=== PATIENT | male | born 1950 | race Caucasian/White ===

== ENCOUNTER 2023-05-06 06:27 | Day surgery (SDC) | payer MEDICARE, BC, SELFPAY ==
[2023-05-04 14:27] VITALS: BMI 22.2
--- NOTE | 2023-05-05 08:44 | HO.ANESPROP2 ---
HPI - Anesthesia Eval Consult details Narrative: 72yo M for Colonoscopy [facility] Past Medical History Medical History (Updated 05/04/23 @ 14:26 by Natalie Tran, RN) Hyperlipidemia BPH (benign prostatic hyperplasia) Hx of varicose veins Surgical History Surgical History (Updated 05/04/23 @ 14:26 by Natalie Tran, RN) Hx of colonoscopy Meds Home Medications Medication Instructions Recorded Confirmed Last Taken Type atorvastatin 20 mg tablet 20 mg PO BEDTIME 05/04/23 05/04/23 Unknown History finasteride 5 mg tablet 5 mg PO DAILY 05/04/23 05/04/23 Unknown History Exam Exam Date and Time: May 05, 2023 0844 Height,Weight and Vital Signs: Height 6 ft 3 in Weight 80.739 kg Assessment and Plan Assessment Anesthesia Assessment: Chart Reviewed
--- OUTSIDE RECORDS SUMMARY | 2023-05-06 06:30 | XMS_ITS | Continuity of Care Document ---
Author Name Unknown Organization [facility] [place] Address [address] [place] [address]- Care Team Providers Care Physical Therapist Assistant Name Role Phone Ina BRAMBILA, Joel Tripp Primary Care Physician [phone] [facility] 01[facility]21 - 02/07/21 [facility] Adult [address] [place] [address]- Allergies, Adverse Reactions, Alerts Substance Reaction Severity Status NKA Active Immunizations Given and Recorded Vaccine Date Status Refusal Reason SARS-CoV-2 (COVID-19) mRNA-1273 vaccine 1 09/27/20 Recorded SARS-CoV-2 (COVID-19) mRNA-1273 vaccine 08/30/20 R ecorded Zoster Vaccine Live 2 08/26/20 Recorded Zoster Vaccine Live 3 05/11/13 Given Influenza Virus Vaccine (oldterm) 4 04/10/20 Recor ded Influenza Virus Vaccine (oldterm) 04/04/20 Recorde d influenza virus vaccine, inactivated 05/01/19 Osman rded influenza virus vaccine, inactivated 5 05/22/18 Gi karen influenza virus vaccine, inactivated 6 04/05/18 Re corded influenza virus vaccine, inactivated 7 03/29/17 Gi karen influenza virus vaccine, inactivated 05/11/16 Give n influenza virus vaccine, inactivated 8 04/09/15 Re corded influenza virus vaccine, inactivated 9 05/11/13 Gi karen influenza virus vaccine, inactivated 10 04/10/12 G iven zoster vaccine, inactivated 09/05/18 Recorded zoster vaccine, inactivated 04/15/18 Recorded pneumococcal 13-valent vaccine 11 05/22/18 Given pneumococcal 13-valent vaccine 12 04/05/18 Recorde d pneumococcal 23-valent vaccine 05/11/16 Given Tet/diphth/pertussis, acel (oldterm) 06/18/11 Give n Fluvirin (oldterm) 13 06/18/11 Given Not Given Vaccine Date Status Refusal Reason Influenza Virus Vaccine (oldterm) 04/13/19 Not Giv en Parent Or Guardian Refuses 1[facility] Comment: [facility] 2Result Comment: [facility] 3Admin Note: given at [facility] 4Result Comment: PHARMACY 5Admin Note: [facility] 6Result Comment: [04/12/2018] [facility] 7Result Comment: [03/29/2017] [facility] [id number] 8Result Comment: [04/14/2015] [facility] 9Admin Note: given at [facility] 10Admin Note: [facility] 11Admin Note: [facility] 12Result Comment: [04/12/2018] [facility] 13Admin Note: WORK 11-11 Medications atorvastatin 20 mg oral tablet 1 tablet = 20 mg, By Mouth, Daily at bedtime, # 90 tablet, 3 Refills, Soft Stop, 01/14/21 10:27:00 EDT, [facility]/pharmacy #[id number], 187, cm, 09/19/20 9:39:00 EST, Height, 78.18, kg, 02/08/19 14:59:00 EDT, Dry Weight Start Date: 01/14/21 Status: Ordered finasteride 5 mg oral tablet 1 tablet = 5 mg, By Mouth, Daily, # 90 tablet, 3 Refills, Soft Stop, 01/14/21 10:27:00 EDT, [facility]/pharmacy #[id number], 187, cm, 09/19/20 9:39:00 EST, Height, 78.18, kg, 02/08/19 14:59:00 EDT, Dry Weight Start Date: 01/14/21 Status: Ordered sildenafil 100 mg oral tablet 1 tablet = 100 mg, By Mouth, Daily, 1 hour before sexual activity, # 10 tablet, 0 Refills, Maintenance, 01/14/21 17:19:00 EDT, [facility]t, [id number], Partial fill upon patient request if the prescription is for a schedule II opioid drug., 187, cm... Start Date: 01/14/21 Status: Ordered Problem List Condition Effective Dates Status Health Status Inform ant BPH - Benign prostatic hypertrophy(Confirmed) Active Mucous cyst of finger - left 3rd(Confirmed) Active Hyperlipidemia(Confirmed) Active Varicose veins(Confirmed) Active Social History Social History Type Response Smoking Status Never smoker entered on: 03/26/16 Sex Male
--- OUTSIDE RECORDS SUMMARY | 2023-05-06 06:30 | XMS_ITS | Continuity of Care Document ---
Author Name Unknown Organization [facility] [place] Address [address] [place] [address]- Care Team Providers Care Warper Tender Name Role Phone Patrick ALDANA, Irene Chaves Primary Care Physician [facility] 04[facility]/22 - 05/05/22 [facility] Adult [address] [place] [address]- Allergies, Adverse Reactions, Alerts No Known Allergies Immunizations Given and Recorded Vaccine Date Status Refusal Reason influenza virus vaccine, inactivated 03/31/21 Osman rded influenza virus vaccine, inactivated 05/01/19 Osman rded influenza virus vaccine, inactivated 1 05/22/18 Gi karen influenza virus vaccine, inactivated 2 04/05/18 Re corded influenza virus vaccine, inactivated 3 03/29/17 Gi karen influenza virus vaccine, inactivated 05/11/16 Give n influenza virus vaccine, inactivated 4 04/09/15 Re corded influenza virus vaccine, inactivated 04/24/14 Osman rded influenza virus vaccine, inactivated 5 05/11/13 Gi karen influenza virus vaccine, inactivated 05/09/13 Osman rded influenza virus vaccine, inactivated 6 04/10/12 Gi karen SARS-CoV-2 (COVID-19) mRNA-1273 vaccine 7 09/27/20 Recorded SARS-CoV-2 (COVID-19) mRNA-1273 vaccine 08/30/20 R ecorded Zoster Vaccine Live 8 08/26/20 Recorded Zoster Vaccine Live 9 05/11/13 Given Zoster Vaccine Live 05/09/13 Recorded Influenza Virus Vaccine (oldterm) 10 04/10/20 Osman rded Influenza Virus Vaccine (oldterm) 04/04/20 Recorde d zoster vaccine, inactivated 09/05/18 Recorded zoster vaccine, inactivated 04/15/18 Recorded pneumococcal 13-valent vaccine 11 05/22/18 Given pneumococcal 13-valent vaccine 12 04/05/18 Recorde d pneumococcal 23-valent vaccine 05/11/16 Given Tet/diphth/pertussis, acel (oldterm) 06/18/11 Give n Fluvirin (oldterm) 13 06/18/11 Given Not Given Vaccine Date Status Refusal Reason Influenza Virus Vaccine (oldterm) 04/13/19 Not Giv en Parent Or Guardian Refuses 1[facility] 2Result Comment: [04/12/2018[facility] 3Result Comment: [03/29/2017] [facility] [id number] 4Result Comment: [04/14/2015] [facility] 5Admin Note: given at [facility] 6Admin Note: [facility] 7Result Comment: [facility] 8Result Comment: [facility] 9Admin Note: given at [facility] 10Result Comment: PHARMACY 11Admin Note: [facility] 12Result Comment: [04/12/2018] [facility] 13Admin Note: WORK 11-11 Medications atorvastatin 20 mg oral tablet 1 tablet, By Mouth, Daily at bedtime, PLEASE CALL OFFICE TO SCHEDULE AN APPT., # 90 tablet, 3 Refills, Maintenance, 04/13/22 11:07:00 EDT, [facility]/pharmacy #0373, 185.5, cm, 05/01/21 8:26:00 EDT, Height Start Date: 04/13/22 Status: Ordered finasteride 5 mg oral tablet 1 tablet, By Mouth, Daily, PLEASE CALL OFFICE TO SCHEDULE AN APPT., # 90 tablet, 0 Refills, Maintenance, 04/08/22 15:09:00 EDT, [facility] STORE 61472, 185.5, cm, 05/01/21 8:26:00 EDT, Height Start Date: 04/08/22 Status: Ordered sildenafil 100 mg oral tablet 1 tablet = 100 mg, By Mouth, Daily, 1 hour before sexual activity REFAXED TO [facility], # 10 tablet, 0Refills, Maintenance, 02/27/21 12:38:00 EDT, Tablet, [facility] # [facility], Partial fill upon patient request if the prescription is for a schedule II... Start Date: 02/27/21 Status: Ordered Problem List Condition Confirmation Course Effective Dates Status H ealth Status Informant BPH - Benign prostatic hypertrophy Confirmed Active Mucous cyst of finger - left 3rd Confirmed Active Hyperlipidemia Confirmed Active Varicose veins Confirmed Active Social History Social History Type Response Smoking Status Never smoker entered on: 03/26/16 Sex Male Patient Care team information Personnel Name: Irene Nguyen NP Address: Address: [address] [place] [id number]
--- OUTSIDE RECORDS SUMMARY | 2023-05-06 06:30 | XMS_ITS | Continuity of Care Document ---
Author Name Unknown Organization [facility] [place] Address [address] [place] [address]- Care Team Providers Care Calciminer Name Role Phone Joel Buckley MD Primary Care Physician [phone] [facility]): 04/25/20 - 05/02/20 [facility] Adult [address] [place] [address]- [facility] Encounter Diagnosis BPH - Benign prostatic hypertrophy(Discharge Diagnosis) - 04/25/20 General medical exam(Discharge Diagnosis) - 04/25/20 Hyperlipidemia(Discharge Diagnosis) - 04/25/20 Attending Physician: Joel Buckley MD Allergies, Adverse Reactions, Alerts Substance Reaction Severity Status NKA Active Immunizations Given and Recorded Vaccine Date Status Refusal Reason Influenza Virus Vaccine (oldterm) 1 04/10/20 Recor ded influenza virus vaccine, inactivated 05/01/19 Osman rded influenza virus vaccine, inactivated 2 05/22/18 Gi karen influenza virus vaccine, inactivated 3 04/05/18 Re corded influenza virus vaccine, inactivated 4 03/29/17 Gi karen influenza virus vaccine, inactivated 05/11/16 Give n influenza virus vaccine, inactivated 5 04/09/15 Re corded influenza virus vaccine, inactivated 6 05/11/13 Gi karen influenza virus vaccine, inactivated 7 04/10/12 Gi karen zoster vaccine, inactivated 09/05/18 Recorded zoster vaccine, inactivated 04/15/18 Recorded pneumococcal 13-valent vaccine 8 05/22/18 Given pneumococcal 13-valent vaccine 9 04/05/18 Recorded pneumococcal 23-valent vaccine 05/11/16 Given Zoster Vaccine Live 10 05/11/13 Given Tet/diphth/pertussis, acel (oldterm) 06/18/11 Give n Fluvirin (oldterm) 11 06/18/11 Given Not Given Vaccine Date Status Refusal Reason Influenza Virus Vaccine (oldterm) 04/13/19 Not Giv en Parent Or Guardian Refuses 1Result Comment: PHARMACY 2Admin Note: [facility] 3Result Comment: [04/12/2018] [facility] 4Result Comment: [03/29/2017] [facility] [id number] 5Result Comment: [04/14/2015] [facility] 6Admin Note: given at [facility] 7Admin Note: [facility] 8Admin Note: [facility] 9Result Comment: [04/12/2018] [facility] 10Admin Note: given at [facility] 11Admin Note: WORK 11-11 Medications atorvastatin 20 mg oral tablet 1 tablet = 20 mg, By Mouth, Daily at bedtime, # 90 tablet, 3 Refills, Soft Stop, 04/25/20 9:04:00 EDT, [facility]/pharmacy #0373, 187, cm, 04/25/20 8:37:00 EDT, Height, 78.18, kg, 02/08/19 14:59:00 EDT, DryWeight Start Date: 04/25/20 Status: Ordered finasteride 5 mg oral tablet 1 tablet = 5 mg, By Mouth, Daily, # 90 tablet, 3 Refills, Soft Stop, 04/25/20 9:04:00 EDT, [facility]/pharmacy #0373, 187, cm, 04/25/20 8:37:00 EDT, Height, 78.18, kg, 02/08/19 14:59:00 EDT, Dry Weight Start Date: 04/25/20 Status: Ordered Problem List Condition Effective Dates Status Health Status Inform ant BPH - Benign prostatic hypertrophy(Confirmed) Active Mucous cyst of finger - left 3rd(Confirmed) Active Hyperlipidemia(Confirmed) Active Varicose veins(Confirmed) Active Diagnosis Diagnosis Type Effective Dates Health Status Clinical Service Informant BPH - Benign prostatic hypertrophy Discharge Diagnosis 04/25/20 General medical exam Discharge Diagnosis 04/25/20 Hyperlipidemia Discharge Diagnosis 04/25/20 Vital Signs Most recent to oldest [Reference Range]: 1 Height 187.00 cm (04/25/20 8:37 AM) Weight 82.2 kg (04/25/20 8:37 AM) Oxygen Saturation [94-100 %] 99 % (04/25/20 8:37 AM) Pulse Rate [55-90 bpm] 71 bpm (04/25/20 8:37 AM) Body Mass Index [18.5-24.99] 23.51 (04/25/20 8:37 AM) Blood Pressure [90-138/55-84 mm Hg] 110/ 80mm Hg (04/25/20 8:37 AM) Temperature [96.8-100.4 DegF] 97.8 DegF (04/25/20 8:37 AM) Blood pressure sites Arm, left (04/25/20 8:37 AM) Social History Social History Type Response Smoking Status Never smoker entered on: 03/26/16 Sex
--- OUTSIDE RECORDS SUMMARY | 2023-05-06 06:30 | XMS_ITS | Continuity of Care Document ---
Author Name Unknown Organization [facility] [place] Address [address] [place] [address]- Care Team Providers Care Real Estate Officer Name Role Phone Patrick ALDANA, Irene Chaves Primary Care Physician [facility](s): 03/28/23 - 04/27/23 [facility] Adult [address] [place] [address]- Allergies, Adverse Reactions, Alerts No Known Allergies Immunizations Given and Recorded Vaccine Date Status Refusal Reason pneumococcal 20-valent conjugate vaccine 05/14/22 Given tetanus-diphtheria toxoids (Td) 05/14/22 Given influenza virus vaccine, inactivated 04/12/22 Osman rded influenza virus vaccine, inactivated 03/31/21 Osman rded [...] virus vaccine, inactivated 6 04/10/12 Gi karen [id number] bivalent booster vax 04/12/22 Recorded SARS-CoV-2 (COVID-19) mRNA-1273 vaccine 10/27/21 R ecorded SARS-CoV-2 (COVID-19) mRNA-1273 vaccine 05/04/21 R ecorded SARS-CoV-2 (COVID-19) mRNA-1273 vaccine 7 09/27/20 Recorded [...] Give n Fluvirin (oldterm) 13 06/18/11 Given 1Admin Note: [facility] 2Result Comment: [04/12/2018] [facility] 3Result Comment: [03/29/2017] [facility] [id number] 4Result Comment: [04/14/2015] [facility] 5Admin Note: given at [facility] 6Admin Note: [facility] 7[facility] Comment: [facility] 8Result Comment: [facility] 9Admin Note: given at [facility] 10Result Comment: [facility] 11Admin Note: [facility] 12Result Comment: [04/12/2018] [facility] 13Admin Note: WORK 11-11 Medications atorvastatin 20 mg oral tablet 1 tablet, By Mouth, Daily at bedtime, # 90 tablet, 0 Refills, Maintenance, 03/31/23 7:58:00 EDT, [facility] 420[facility], 185.5, cm, 05/14/22 7:12:00 EDT, Height Start Date: 03/31/23 Status: Ordered finasteride 5 mg oral tablet 1 tablet, By Mouth, Daily, PLEASE CALL OFFICE TO SCHEDULE AN APPT., # 90 tablet, 3 Refills, Maintenance, 06/17/22 12:32:00 EST, [facility] 78067, 185.5, cm, 05/14/22 7:12:00 EDT, Height Start Date: 06/17/22 Status: Ordered Problem List Condition Confirmation Course Effective Dates Status H ealth Status Informant BPH - Benign prostatic hypertrophy Confirmed Active Mucous cyst of finger - left 3rd Confirmed Active Hyperlipidemia Confirmed Active Varicose veins Confirmed Active Social History Social History Type Response Smoking Status Never smoker entered on: 03/26/16 Sex Male Patient Care team information Care Team Personnel Name: Irene Nguyen NP Position: S PCO Associate Professional Member Role: PCP Address: Address: [address] [place] [address]- Care Team Related Persons Name: SYLVIA FRAGOSO Address: [address] [place] [address]
--- OUTSIDE RECORDS SUMMARY | 2023-05-06 06:30 | XMS_ITS | Continuity of Care Document ---
Author Name Unknown Organization [facility] [place] Address [address] [place] [address]- Care Team Providers Care Dolly Driver Name Role Phone Ina BRAMBILA, Joel Tripp Primary Care Physician [facility](s): 03/02/21 - 04/01/21 [facility] Adult [address] [place] [address]- Allergies, Adverse Reactions, Alerts Substance Reaction Severity [...] Guardian Refuses 1[facility] Comment: [facility] 2Result Comment: [facility] 3Admin Note: given at [facility] 4Result Comment: PHARMACY 5Admin Note: [facility] 6Result Comment: [04/12/2018] [facility] 7Result Comment: [03/29/2017] [facility] [id number] 8Result Comment: [04/14/2015] [facility] 9Admin Note: given at [facility] 10Admin Note: [facility] 11Admin Note: [facility] 12Result Comment: [04/12/2018] [facility] 13Admin Note: WORK 11-11 Medications atorvastatin 20 mg oral tablet 1 tablet = 20 mg, By Mouth, Daily at bedtime, # 90 tablet, 3 Refills, Soft Stop, 01/14/21 10:27:00 EDT, [facility]/pharmacy #0373, 187, cm, 09/19/20 9:39:00 EST, Height, 78.18, kg, 02/08/19 14:59:00 EDT, Dry Weight Start Date: 01/14/21 Status: Ordered finasteride 5 mg oral tablet 1 tablet = 5 mg, By Mouth, Daily, # 90 tablet, 3 Refills, Soft Stop, 01/14/21 10:27:00 EDT, [facility]/pharmacy #0373, 187, cm, 09/19/20 9:39:00 EST, Height, 78.18, kg, 02/08/19 14:59:00 EDT, Dry Weight Start Date: 01/14/21 Status: Ordered sildenafil 100 mg oral tablet 1 tablet = 100 mg, By Mouth, Daily, 1 hour before sexual activity REFAXED TO [facility], # 10 tablet, 0Refills, Maintenance, 02/27/21 12:38:00 EDT, Tablet, [facility] # 302, Partial fill upon patient request if the prescription is for a schedule II... Start Date: 02/27/21 Status: Ordered Problem List Condition Effective Dates Status Health Status Inform ant BPH - Benign prostatic hypertrophy(Confirmed) Active Mucous cyst of finger - left 3rd(Confirmed) Active Hyperlipidemia(Confirmed) Active Varicose veins(Confirmed) Active Social History Social History Type Response Smoking Status Never smoker entered on: 03/26/16 Sex Male
--- OUTSIDE RECORDS SUMMARY | 2023-05-06 06:30 | XMS_ITS | Continuity of Care Document ---
Author Name Unknown Organization [facility] [place] Address [address] [place] [address]- Care Team Providers Care Rehabilitation Therapy Aide Name Role Phone Joel Buckley MD Primary Care Physician [facility](s): 05/01/21 - 05/08/21 [facility] Adult [address] [place] [address]- Encounter Diagnosis BPH - Benign prostatic hypertrophy(Discharge Diagnosis) - 05/01/21 Erectile dysfunction(Discharge Diagnosis) - 05/01/21 General medical exam(Discharge Diagnosis) - 05/01/21 Hyperlipidemia(Discharge Diagnosis) - 05/01/21 Attending Physician: Joel Buckley MD Allergies, Adverse [...] en Parent Or Guardian Refuses 1Admin Note: [facility] 2Result Comment: [04/12/2018] [facility] 3Result Comment: [03/29/2017] [facility] [id number] 4Result Comment: [04/14/2015] [facility] 5Admin Note: given at [facility] 6Admin Note: [facility] 7Result Comment: [facility] 8Result Comment: [facility] 9Admin Note: given at [facility] 10Result Comment: [facility]Y 11Admin Note: [facility] 12Result Comment: [04/12/2018] [facility] 13Admin Note: WORK 11-11 Medications atorvastatin 20 mg oral tablet 1 tablet = 20 mg, By Mouth, Daily at bedtime, # 90 tablet, 3 Refills, Soft Stop, 01/14/21 10:27:00 EDT, [facility]/pharmacy #0373, 187, cm, 09/19/20 9:39:00 EST, Height, 78.18, kg, 02/08/19 14:59:00 EDT, Dry Weight Start Date: 01/14/21 Status: Ordered finasteride 5 mg oral tablet 1 tablet = 5 mg, By Mouth, Daily, # 90 tablet, 3 Refills, Soft Stop, 01/14/21 10:27:00 EDT, [facility]/pharmacy #0373, 187, cm, 09/19/20 9:39:00 EST, Height, 78.18, kg, 02/08/19 14:59:00 EDT, Dry Weight Start Date: 01/14/21 Status: Ordered sildenafil 100 mg oral tablet 1 tablet = 100 mg, By Mouth, Daily, 1 hour before sexual activity REFAXED TO [facility], # 10 tablet, 0Refills, Maintenance, 02/27/21 12:38:00 EDT, Tablet, [facility], Partial fill upon patient [...] BPH - Benign prostatic hypertrophy Discharge Diagnosis 05/01/21 Hyperlipidemia Discharge Diagnosis 05/01/21 Erectile dysfunction Discharge Diagnosis 05/01/21 General medical exam Discharge Diagnosis 05/01/21 Vital Signs Most recent to oldest [Reference Range]: 1 Height 185.5 cm (05/01/21 8:26 AM) Weight 80.6 kg (05/01/21 8:26 AM) Oxygen Saturation [94-100 %] 99 % (05/01/21 8:26 AM) Pulse Rate [55-90 bpm] 64 bpm (05/01/21 8:26 AM) Body Mass Index [18.5-24.99] 23.42 (05/01/21 8:26 AM) Blood Pressure [90-138/55-84 mm Hg] 118/ 73mm Hg (05/01/21 8:26 AM) Temperature [96.8-100.4 DegF] 98.1 DegF (05/01/21 8:26 AM) Mode of Delivery (Oxygen) Room air (05/01/21 8:26 AM) Blood pressure sites Arm, left (05/01/21 8:26 AM) Temperature Route Oral (05/01/21 8:26 AM) Weight Obtained Via Standing scale (05/01/21 8:26 AM) Social History Social History Type Response Smoking Status Never smoker entered on: 03/26/16 Sex Male
--- OUTSIDE RECORDS SUMMARY | 2023-05-06 06:30 | XMS_ITS | Continuity of Care Document ---
Author Name Unknown Organization [facility] [place] Address [address] [place] [address]- Care Team Providers Care Business Education Teacher Name Role Phone Ina BRAMBILA, Joel Tripp Primary Care Physician [facility](s): 04/28/21 - 05/28/21 [facility] Adult [address] [place] [address]- Allergies, Adverse Reactions, Alerts Substance Reaction Severity [...] en Parent Or Guardian Refuses 1Admin Note: [facility] 2Result Comment: [04/12/2018] [facility] 3Result Comment: [03/29/2017] [facility] [id number] 4Result Comment: [04/14/2015] [facility] 5Admin Note: given at [facility] 6Admin Note: [facility] 7Result Comment: [facility] 8Result Comment: [facility] 9Admin Note: given at [facility] 10Result Comment: PHARMACY 11Admin Note: [facility] 12Result Comment: [04/12/2018] [facility] 13Admin Note: WORK 11-11 Medications atorvastatin 20 mg oral tablet 1 tablet = 20 mg, By Mouth, Daily at bedtime, # 90 tablet, 3 Refills, Soft Stop, 01/14/21 10:27:00 EDT, [facility]/pharmacy #0373, 187, cm, 09/19/20 9:39:00 EST, Height, 78.18, kg, 02/08/19 14:59:00 EDT, Dry Weight Start Date: 01/14/21 Status: Ordered finasteride 5 mg oral tablet 1 tablet = 5 mg, By Mouth, Daily, # 90 tablet, 3 Refills, Soft Stop, 01/14/21 10:27:00 EDT, [facility]/pharmacy #0373, 187, cm, 09/19/20 9:39:00 EST, Height, 78.18, kg, 02/08/19 14:59:00 EDT, Dry Weight Start Date: 01/14/21 Status: Ordered sildenafil 100 mg oral tablet 1 tablet = 100 mg, By Mouth, Daily, 1 hour before sexual activity REFAXED TO [facility], # 10 tablet, 0Refills, Maintenance, 02/27/21 12:38:00 EDT, Tablet, [facility] # 302, Partial fill upon patient [...]
--- OUTSIDE RECORDS SUMMARY | 2023-05-06 06:30 | XMS_ITS | Continuity of Care Document ---
Author Name Unknown Organization [facility] [place] Address [address] [place] [address]- Care Team Providers Care Party Plan Demonstrator Name Role Phone Ina BRAMBILA, Joel Tripp Primary Care Physician [phone] [facility](s): 02/26/21 - 03/28/21 [facility] Adult [address] [place] [address]- Allergies, Adverse Reactions, Alerts Substance Reaction Severity [...] Guardian Refuses [facility] 2Result Comment: [facility] 3Admin Note: given at [facility] 4Result Comment: PHARMACY 5Admin Note: [facility] 6[facility] Comment: [04/12/2018] [facility] 7Result Comment: [03/29/2017] [facility] [id number] 8Result Comment: [04/14/2015] [facility] 9Admin Note: given at [facility] 10Admin Note: [facility] 11Admin Note: [facility] 12Result Comment: [04/12/2018] [facility] 13Admin Note: WORK 11-11 Medications atorvastatin 20 mg oral tablet 1 tablet = 20 mg, By Mouth, Daily at bedtime, # 90 tablet, 3 Refills, Soft Stop, 01/14/21 10:27:00 EDT, [facility]/pharmacy #0373, 187, cm, 09/19/20 9:39:00 EST, Height, 78.18, kg, 02/08/19 14:59:00 EDT, Dry Weight Start Date: 01/14/21 Status: Ordered finasteride 5 mg oral tablet 1 tablet = 5 mg, By Mouth, Daily, # 90 tablet, 3 Refills, Soft Stop, 01/14/21 10:27:00 EDT, [facility]/pharmacy #0373, 187, cm, 09/19/20 9:39:00 EST, [...]
--- OUTSIDE RECORDS SUMMARY | 2023-05-06 06:30 | XMS_ITS | Continuity of Care Document ---
Author Name Unknown Organization [facility] [place] lt Address [address] [place] [address]- Care Team Providers Care Wildlife Ecology Professor Name Role Phone Ina BRAMBILA, Joel Tripp Primary Care Physician [phone] [facility]): 01/09/21 - 02/08/21 [facility] Adult [address] [place] [address]- Allergies, Adverse Reactions, Alerts Substance Reaction Severity [...] Guardian Refuses 1Result Comment: [facility] 2Result Comment: [facility] 3Admin Note: given at [facility] 4Result Comment: PHARMACY 5Admin Note: [facility] 6Result Comment: [04/12/2018] [facility] 7Result Comment: [03/29/2017] [facility] [id number] 8Result Comment: [04/14/2015] [facility] 9Admin Note: given at [facility] 10Admin Note: [facility] 11Admin Note: [facility] 12Result Comment: [04/12/2018] [facility] 13Admin Note: WORK 11-11 Medications atorvastatin 20 mg oral tablet 1 tablet = 20 mg, By Mouth, Daily at bedtime, # 90 tablet, 3 Refills, Soft Stop, 01/14/21 10:27:00 EDT, [facility]/pharmacy #[id number], 187, cm, 09/19/20 9:39:00 EST, Height, 78.18, kg, 02/08/19 14:59:00 EDT, Dry Weight Start Date: 01/14/21 Status: Ordered finasteride 5 mg oral tablet 1 tablet = 5 mg, By Mouth, Daily, # 90 tablet, 3 Refills, Soft Stop, 01/14/21 10:27:00 EDT, [facility]/pharmacy #0373, 187, cm, 09/19/20 9:39:00 [...]
--- OUTSIDE RECORDS SUMMARY | 2023-05-06 06:30 | XMS_ITS | Continuity of Care Document ---
Author Name Unknown Organization [facility] [place] Address [address] [place] [address]- Care Team Providers Care Jointer Submarine Cable Name Role Phone Ina BRAMBILA, Joel Tripp Primary Care Physician Encounter [facility] Date(s): 01/26/21 - 02/25/21 [facility] Adult [address] [place] [address]- Allergies, Adverse Reactions, Alerts Substance Reaction Severity [...] Guardian Refuses 1Result Comment: [facility] 2Result Comment: [facility] 3Admin Note: given at [facility] 4Result Comment: PHARMACY 5Admin Note: [facility] 6Result Comment: [04/12/2018] [facility] 7Result Comment: [03/29/2017] [facility] [id number] 8Result Comment: [04/14/2015] [facility] 9Admin Note: given at [facility] 10Admin Note: [facility] 11Admin Note: [place] 12Result Comment: [04/12/2018] [facility] 13Admin Note: WORK 11-11 Medications atorvastatin 20 mg oral tablet 1 tablet = 20 mg, By Mouth, Daily at bedtime, # 90 tablet, 3 Refills, Soft Stop, 01/14/21 10:27:00 EDT, [facility]/pharmacy #0373, 187, cm, 09/19/20 9:39:00 EST, Height, 78.18, kg, 02/08/19 14:59:00 EDT, Dry Weight Start Date: 01/14/21 Status: Ordered finasteride 5 mg oral tablet 1 tablet = 5 mg, By Mouth, Daily, # 90 tablet, 3 Refills, Soft Stop, 01/14/21 10:27:00 EDT, [facility]/pharmacy #0373, 187, cm, 09/19/20 9:39:00 [...]
--- OUTSIDE RECORDS SUMMARY | 2023-05-06 06:30 | XMS_ITS | Continuity of Care Document ---
Author Name Unknown Organization [facility] [place] Address [address] [place] [address]- Care Team Providers Care Jewelry Sales Associate Name Role Phone Patrick ALDANA, Irene Chaves Primary Care Physician Encounter [facility] Date(s): 04/13/22 - 05/13/22 [facility] Adult [address] [place] [address]- Allergies, Adverse Reactions, Alerts No Known Allergies [...] 2Result Comment: [04/12/2018] [facility] 3Result Comment: [03/29/2017] [facility] [id number] 4Result Comment: [04/14/2015] [facility] 5Admin Note: given at [facility] 6Admin Note: [facility] 7Result Comment: [facility] 8Result Comment: [facility] 9Admin Note: given at [facility] 10Result Comment: PHARMACY 11Admin Note: [facility] 12Result Comment: [04/12/2018] [facility] 13Admin Note: WORK 11-11 Medications atorvastatin 20 mg oral tablet 1 tablet, By Mouth, Daily at bedtime, PLEASE CALL OFFICE TO SCHEDULE AN APPT., # 90 tablet, 3 Refills, Maintenance, 04/13/22 11:07:00 EDT, [facility]/pharmacy #0373, 185.5, cm, 05/01/21 8:26:00 EDT, Height Start Date: 04/13/22 Status: Ordered finasteride 5 mg oral tablet 1 tablet, By Mouth, Daily, PLEASE CALL OFFICE TO SCHEDULE AN APPT., # 90 tablet, 0 Refills, Maintenance, 04/08/22 15:09:00 EDT, [facility] [id number], 185.5, cm, 05/01/21 8:26:00 EDT, Height Start Date: 04/08/22 Status: Ordered sildenafil 100 mg oral tablet 1 tablet = 100 mg, By Mouth, Daily, 1 hour before sexual activity REFAXED TO [employer], # 10 tablet, 0Refills, Maintenance, 02/27/21 12:38:00 EDT, Tablet, [facility], Partial fill upon patient [...] Personnel Name: Irene Nguyen NP Address: Address: [address] [place] [id number]
--- OUTSIDE RECORDS SUMMARY | 2023-05-06 06:30 | XMS_ITS | Continuity of Care Document ---
Author Name Unknown Organization [facility] [place] Address [address] [place] [address]- Care Team Providers Care Wall Washer Name Role Phone Ina BRAMBILA, Joel Tripp Primary Care Physician Encounter [facility] Date(s): 03/02/21 - 04/01/21 [facility] Adult [address] [place] [address]- Allergies, Adverse Reactions, Alerts Substance Reaction Severity [...] Guardian Refuses 1Result Comment: [facility] 2Result Comment: [facility] 3Admin Note: given at [facility] 4Result Comment: PHARMACY 5Admin Note: [facility] 6Result Comment: [04/12/2018] [facility] 7Result Comment: [03/29/2017] [facility] [id number] 8Result Comment: [04/14/2015] [facility] 9Admin Note: given at [facility] 10Admin Note: [facility] 11Admin Note: [place] 12Result Comment: [04/12/2018] [facility] 13Admin Note: WORK 11-11 Medications atorvastatin 20 mg oral tablet 1 tablet = 20 mg, By Mouth, Daily at bedtime, # 90 tablet, 3 Refills, Soft Stop, 01/14/21 10:27:00 EDT, [facility]/pharmacy #[id number], 187, cm, 09/19/20 9:39:00 EST, Height, 78.18, kg, 02/08/19 14:59:00 EDT, Dry Weight Start Date: 01/14/21 Status: Ordered finasteride 5 mg oral tablet 1 tablet = 5 mg, By Mouth, Daily, # 90 tablet, 3 Refills, Soft Stop, 01/14/21 10:27:00 EDT, [facility]/pharmacy #0373, 187, cm, 09/19/20 9:39:00 EST, [...]
--- OUTSIDE RECORDS SUMMARY | 2023-05-06 06:30 | XMS_ITS | Continuity of Care Document ---
Author Name Unknown Organization [facility] [place] Address [address] [place] [address]- Care Team Providers Care Sand Cutting Machine Operator Name Role Phone Ina BRAMBILA, Joel Tripp Primary Care Physician Encounter [facility] Date(s): 01/09/21 - 02/08/21 [facility] Adult [address] [place] [address]- Allergies, Adverse Reactions, Alerts Substance Reaction Severity [...] Guardian Refuses 1Result Comment: [facility] 2Result Comment: [facility] 3Admin Note: given at [facility] 4Result Comment: PHARMACY 5Admin Note: [facility] 6Result Comment: [04/12/2018] [facility] 7Result Comment: [03/29/2017] [facility] [id number] 8Result Comment: [04/14/2015] [facility] 9Admin Note: given at [facility] 10Admin Note: [facility] 11Admin Note: [place] 12Result Comment: [04/12/2018] [facility] 13Admin Note: WORK 11-11 Medications atorvastatin 20 mg oral tablet 1 tablet = 20 mg, By Mouth, Daily at bedtime, # 90 tablet, 3 Refills, Soft Stop, 01/14/21 10:27:00 EDT, [facility]/pharmacy #0373, 187, cm, 09/19/20 9:39:00 EST, Height, 78.18, kg, 02/08/19 14:59:00 EDT, Dry Weight Start Date: 01/14/21 Status: Ordered finasteride 5 mg oral tablet 1 tablet = 5 mg, By Mouth, Daily, # 90 tablet, 3 Refills, Soft Stop, 01/14/21 10:27:00 EDT, [facility]/pharmacy #0373, 187, cm, 09/19/20 9:39:00 EST, [...]
--- OUTSIDE RECORDS SUMMARY | 2023-05-06 06:30 | XMS_ITS | Continuity of Care Document ---
Author Name Unknown Organization [facility] [place] Address [address] [place] [address]- Care Team Providers Care Tobacco Wrapping Machine Tender Name Role Phone Ina BRAMBILA, Joel Tripp Primary Care Physician [phone] [facility]counter [facility] Date(s): 01/13/21 - 02/12/21 [facility] Adult [address] [place] [address]- Allergies, Adverse Reactions, Alerts Substance Reaction Severity [...] Guardian Refuses 1Result Comment: [facility] 2Result Comment: [facility] 3Admin Note: given at [facility] 4Result Comment: PHARMACY 5Admin Note: [facility] 6Result Comment: [04/12/2018] [facility] 7Result Comment: [03/29/2017] [facility] [id number] 8Result Comment: [04/14/2015] [facility] 9Admin Note: given at [facility] 10Admin Note: [facility] 11Admin Note: [place] 12Result Comment: [04/12/2018] [facility] 13Admin Note: WORK 11-11 Medications atorvastatin 20 mg oral tablet 1 tablet = 20 mg, By Mouth, Daily at bedtime, # 90 tablet, 3 Refills, Soft Stop, 01/14/21 10:27:00 EDT, [facility]/pharmacy #0373, 187, cm, 09/19/20 9:39:00 EST, Height, 78.18, kg, 02/08/19 14:59:00 EDT, Dry Weight Start Date: 01/14/21 Status: Ordered finasteride 5 mg oral tablet 1 tablet = 5 mg, By Mouth, Daily, # 90 tablet, 3 Refills, Soft Stop, 01/14/21 10:27:00 EDT, [facility]/pharmacy #0373, 187, cm, 09/19/20 9:39:00 EST, [...]
--- OUTSIDE RECORDS SUMMARY | 2023-05-06 06:30 | XMS_ITS | Continuity of Care Document ---
Author Name Unknown Organization [facility] [place] Address [address] [place] [address]- Care Team Providers Care Printed Circuit Board Reworker Name Role Phone Ina BRAMBILA, Joel Tripp Primary Care Physician [phone] [facility]counter [facility] Date(s): 09/19/20 - 09/26/20 [facility] Adult [address] [place] [address]- Attending Physician: Adalid ALDANA, Maria Fernanda Hernandez Allergies, Adverse Reactions, Alerts Substance Reaction Severity Status NKA Active Immunizations Given and Recorded Vaccine Date Status Refusal Reason SARS-CoV-2 (COVID-19) mRNA-3976 vaccine 08/30/20 R ecorded Zoster Vaccine Live 1 08/26/20 Recorded Zoster Vaccine Live 2 05/11/13 Given Influenza Virus Vaccine (oldterm) 3 04/10/20 Recor ded Influenza Virus Vaccine (oldterm) 04/04/20 Recorde d influenza virus vaccine, inactivated 05/01/19 Osman rded influenza virus vaccine, inactivated 4 05/22/18 Gi karen influenza virus vaccine, inactivated 5 04/05/18 Re corded influenza virus vaccine, inactivated 6 03/29/17 Gi karen influenza virus vaccine, inactivated 05/11/16 Give n influenza virus vaccine, inactivated 7 04/09/15 Re corded influenza virus vaccine, inactivated 8 05/11/13 Gi karen influenza virus vaccine, inactivated 9 04/10/12 Gi karen zoster vaccine, inactivated 09/05/18 Recorded zoster vaccine, inactivated 04/15/18 Recorded pneumococcal 13-valent vaccine 10 05/22/18 Given pneumococcal 13-valent vaccine 11 04/05/18 Recorde d pneumococcal 23-valent vaccine 05/11/16 Given Tet/diphth/pertussis, acel (oldterm) 06/18/11 Give n Fluvirin (oldterm) 12 06/18/11 Given Not Given Vaccine Date Status Refusal Reason Influenza Virus Vaccine (oldterm) 04/13/19 Not Giv en Parent Or Guardian Refuses 1[facility] Comment[facility] 2Admin Note: [facility] at [facility] 3Result Comment: [facility] 4Admin Note: [facility] 5Result Comment: [04/12/2018] [facility] 6Result Comment: [03/29/2017] [facility] [id number] 7Result Comment: [04/14/2015] [facility] 8Admin Note: given at [facility] 9Admin Note: [facility] 11Result Comment: [04/12/2018] [facility] 12Admin Note: WORK 11-11 Medications atorvastatin 20 mg oral tablet 1 tablet = 20 mg, By Mouth, Daily at bedtime, # 90 tablet, 1 Refills, Soft Stop, 07/31/20 14:28:00 EST, [facility]/pharmacy #0373, 187, cm, 04/25/20 8:37:00 EDT, Height, 78.18, kg, 02/08/19 14:59:00 EDT, Dry Weight Start Date: 07/31/20 Status: Ordered finasteride 5 mg oral tablet 1 tablet = 5 mg, By Mouth, Daily, # 90 tablet, 3 Refills, Soft Stop, 04/25/20 9:04:00 EDT, [facility]/pharmacy #0373, 187, cm, 04/25/20 8:37:00 EDT, Height, 78.18, kg, 02/08/19 14:59:00 EDT, Dry Weight Start Date: 04/25/20 Status: Ordered Problem List Condition Effective Dates Status Health Status Inform ant BPH - Benign prostatic hypertrophy(Confirmed) Active Mucous cyst of finger - left 3rd(Confirmed) Active Hyperlipidemia(Confirmed) Active Varicose veins(Confirmed) Active Vital Signs Most recent to oldest [Reference Range]: 1 Height 187.00 cm (09/19/20 9:39 AM) Weight 81.6 kg (09/19/20 9:39 AM) Oxygen Saturation [94-100 %] 98 % (09/19/20 9:39 AM) Pulse Rate [55-90 bpm] 74 bpm (09/19/20 9:39 AM) Body Mass Index [18.5-24.99] 23.33 (09/19/20 9:39 AM) Blood Pressure [90-138/55-84 mm Hg] 128/ 80mm Hg (09/19/20 9:39 AM) Temperature [96.8-100.4 DegF] 97.3 DegF (09/19/20 9:39 AM) Blood pressure sites Arm, right (09/19/20 9:39 AM) Temperature Route Oral (09/19/20 9:39 AM) Weight Obtained Via Standing scale (09/19/20 9:39 AM) Social History Social History Type Response Smoking Status Never smoker entered on: 03/26/16 Sex
--- OUTSIDE RECORDS SUMMARY | 2023-05-06 06:30 | XMS_ITS | Continuity of Care Document ---
Author Name Unknown Organization [facility] [place] Address [address] [place] [address]- Care Team Providers Care Patient Transportation Driver Name Role Phone Ina BRAMBILA, Joel Tripp Primary Care Physician Encounter [facility] Date(s): 09/22/20 - 10/22/20 [facility] Adult [address] [place] [address]- Allergies, Adverse Reactions, Alerts Substance Reaction Severity [...] Refuses 1Result Comment: [facility] 2Result Comment: [facility] 3Admin Note: given at [facility] 4Result Comment: [facility] 5Admin Note: [facility] 6Result Comment: [04/12/2018] [facility] 7Result Comment: [03/29/2017] [facility] [id number] 8Result Comment: [04/14/2015] [facility] 9Admin Note: given at [facility] 10Admin Note: [facility] 11Admin Note: [place] 12Result Comment: [04/12/2018] [facility] 13Admin Note: WORK 11-11 Medications atorvastatin 20 mg oral tablet 1 tablet = 20 mg, By Mouth, Daily at bedtime, # 90 tablet, 1 Refills, Soft Stop, 07/31/20 14:28:00 EST, [facility]/pharmacy #0373, 187, cm, 04/25/20 8:37:00 EDT, Height, 78.18, kg, 02/08/19 14:59:00 EDT, Dry Weight Start Date: 07/31/20 Status: Ordered finasteride 5 mg oral tablet 1 tablet = 5 mg, By Mouth, Daily, # 90 tablet, 3 Refills, Soft Stop, 04/25/20 9:04:00 EDT, [facility]/pharmacy #0373, 187, cm, 04/25/20 8:37:00 EDT, Height, [...]
--- OUTSIDE RECORDS SUMMARY | 2023-05-06 06:30 | XMS_ITS | Continuity of Care Document ---
Author Name Unknown Organization [facility] [place] Address [address] [place] [address]- Care Team Providers Care County Records Management Officer Name Role Phone Ina BRAMBILA, Joel Tripp Primary Care Physician [phone] [facility]counter [facility] Date(s): 01/07/21 - 02/06/21 [facility] Adult [address] [place] [address]- Allergies, Adverse Reactions, Alerts Substance Reaction Severity [...] Guardian Refuses 1[facility] Comment: [facility] 2Result Comment: [facility] 3Admin Note: given at [facility] 4Result Comment: PHARMACY 5Admin Note: [facility] 6Result Comment: [04/12/2018] [facility] 7Result Comment: [03/29/2017] [facility] [id number] 8Result Comment: [04/14/2015] [facility] 9Admin Note: given at [facility] 10Admin Note: [facility] 11Admin Note: [facility] 12Result Comment: [04/12/2018] [facility] 13Admin Note: WORK 11-11 Medications atorvastatin 20 mg oral tablet 1 tablet = 20 mg, By Mouth, Daily at bedtime, # 90 tablet, 3 Refills, Soft Stop, 01/14/21 10:27:00 EDT, [facility]/pharmacy #0373, 187, cm, 09/19/20 9:39:00 EST, Height, 78.18, kg, 02/08/19 14:59:00 EDT, Dry Weight Start Date: 01/14/21 Status: Ordered finasteride 5 mg oral tablet 1 tablet = 5 mg, By Mouth, Daily, # 90 tablet, 3 Refills, Soft Stop, 01/14/21 10:27:00 EDT, [facility]/pharmacy #0373, 187, cm, 09/19/20 9:39:00 EST, Height, [...]
--- OUTSIDE RECORDS SUMMARY | 2023-05-06 06:30 | XMS_ITS | Continuity of Care Document ---
Author Name Unknown Organization [facility] [place] Address [address] [place] [address]- Care Team Providers Care Harvest Contractor Name Role Phone Ina BRAMBLIA, Joel Tripp Primary Care Physician Encounter [facility] Date(s): 02/26/21 - 03/28/21 [facility] Adult [address] [place] [address]- Allergies, Adverse Reactions, Alerts Substance Reaction Severity [...] Guardian Refuses 1Result Comment: [facility] 2Result Comment: [facility] 3Admin Note: given at [facility] 4Result Comment: PHARMACY 5Admin Note: [facility] 6Result Comment: [04/12/2018] [facility] 7Result Comment: [03/29/2017] [facility] [id number] 8Result Comment: [04/14/2015] [facility] 9Admin Note: given at [facility] 10Admin Note: [facility] 11Admin Note: [place] 12Result Comment: [04/12/2018] [facility] 13Admin Note: WORK 11-11 Medications atorvastatin 20 mg oral tablet 1 tablet = 20 mg, By Mouth, Daily at bedtime, # 90 tablet, 3 Refills, Soft Stop, 01/14/21 10:27:00 EDT, [facility]/pharmacy #0373, 187, cm, 09/19/20 9:39:00 EST, Height, 78.18, kg, 02/08/19 14:59:00 EDT, Dry Weight Start Date: 01/14/21 Status: Ordered finasteride 5 mg oral tablet 1 tablet = 5 mg, By Mouth, Daily, # 90 tablet, 3 Refills, Soft Stop, 01/14/21 10:27:00 EDT, [facility]/pharmacy #0373, 187, cm, 09/19/20 9:39:00 EST, Height, [...]
--- OUTSIDE RECORDS SUMMARY | 2023-05-06 06:30 | XMS_ITS | Continuity of Care Document ---
Author Name Unknown Organization [facility] [place] Address [address] [place] [address]- Care Team Providers Care Child And Family Services Worker Name Role Phone Ina BRAMBILA, Joel Tripp Primary Care Physician [phone] [facility]counter [facility] Date(s): 05/11/21 - 06/10/21 [facility] Adult [address] [place] [address]- Allergies, Adverse Reactions, Alerts Substance Reaction Severity [...] 2Result Comment: [04/12/2018] [facility] 3Result Comment: [03/29/2017] [facility] [id number] 4Result Comment: [04/14/2015] [facility] 5Admin Note: given at [facility] 6Admin Note: [facility] 7Result Comment: [facility] 8Result Comment: [facility] 9Admin Note: given at [facility] 10Result Comment: PHARMACY 11Admin Note: [facility] 12Result Comment: [04/12/2018] [facility] 13Admin Note: WORK 11-11 Medications atorvastatin 20 mg oral tablet 1 tablet = 20 mg, By Mouth, Daily at bedtime, # 90 tablet, 3 Refills, Soft Stop, 01/14/21 10:27:00 EDT, [facility]/pharmacy #0373, 187, cm, 09/19/20 9:39:00 EST, Height, 78.18, kg, 02/08/19 14:59:00 EDT, Dry Weight Start Date: 01/14/21 Status: Ordered finasteride 5 mg oral tablet 1 tablet = 5 mg, By Mouth, Daily, # 90 tablet, 3 Refills, Soft Stop, 01/14/21 10:27:00 EDT, [facility]/pharmacy #0373, 187, cm, 09/19/20 9:39:00 EST, Height, 78.18, kg, 02/08/19 14:59:00 EDT, Dry Weight Start Date: 01/14/21 Status: Ordered sildenafil 100 mg oral tablet 1 tablet = 100 mg, By Mouth, Daily, 1 hour before [facility], # [facility] tablet, 0Refills, Maintenance, 02/27/21 12:38:00 EDT, Tablet, [email or web address] # 302, Partial fill upon patient [...]
--- OUTSIDE RECORDS SUMMARY | 2023-05-06 06:30 | XMS_ITS | Continuity of Care Document ---
Author Name Unknown Organization [facility] [place] Address [address] [place] [address]- Care Team Providers Care Green Pipefitter Name Role Phone Ina BRAMBILA, Joel Tripp Primary Care Physician Encounter [facility] Date(s): 04/28/21 - 05/28/21 [facility] Adult [address] [place] [address]- Allergies, Adverse Reactions, Alerts Substance Reaction Severity [...] 2Result Comment: [04/12/2018] [facility] 3Result Comment: [03/29/2017] [facility] [id number] 4Result Comment: [04/14/2015] [facility] 5Admin Note: given at [facility] 6Admin Note: [facility] 7Result Comment: [facility] 8Result Comment: [facility] 9Admin Note: given at [facility] 10Result Comment: PHARMACY 11Admin Note: [facility] 12Result Comment: [04/12/2018] [facility] 13Admin Note: WORK 11-11 Medications atorvastatin 20 mg oral tablet 1 tablet = 20 mg, By Mouth, Daily at bedtime, # 90 tablet, 3 Refills, Soft Stop, 01/14/21 10:27:00 EDT, [facility]/pharmacy #0373, 187, cm, 09/19/20 9:39:00 EST, Height, 78.18, kg, 02/08/19 14:59:00 EDT, Dry Weight Start Date: 01/14/21 Status: Ordered finasteride 5 mg oral tablet 1 tablet = 5 mg, By Mouth, Daily, # 90 tablet, 3 Refills, Soft Stop, 01/14/21 10:27:00 EDT, [facility]/pharmacy #0373, 187, cm, 09/19/20 9:39:00 EST, Height, 78.18, kg, 02/08/19 14:59:00 EDT, Dry Weight Start Date: 01/14/21 Status: Ordered sildenafil 100 mg oral tablet 1 tablet = 100 mg, By Mouth, Daily, 1 hour before sexual activity RE[facility]XED TO [facility], # 10 tablet, 0Refills, Maintenance, 02/27/21 12:38:00 EDT, Tablet, [facility] # 302, Partial fill upon patient [...]
--- OUTSIDE RECORDS SUMMARY | 2023-05-06 06:30 | XMS_ITS | Continuity of Care Document ---
Author Name Unknown Organization [facility] [place] Address [address] [place] [address]- Care Team Providers Care Stem Maker Name Role Phone Ina BRAMBILA, Joel Tripp Primary Care Physician Encounter [facility] Date(s): 02/26/21 - 03/28/21 [facility] Adult [address] [place] [address]- Allergies, Adverse Reactions, Alerts Substance Reaction Severity [...] Guardian Refuses 1[facility] Comment: [facility] 2Result Comment: [facility] 3Admin Note: given at [facility] 4Result Comment: PHARMACY 5Admin Note: [facility] 6Result Comment: [04/12/2018] [facility] 7Result Comment: [03/29/2017] [facility] [id number] 8Result Comment: [04/14/2015] [facility] 9Admin Note: given at [facility] 10Admin Note: [facility] 11Admin Note: [facility] 12Result Comment: [04/12/2018] [facility] 13Admin Note: WORK 11-11 Medications atorvastatin 20 mg oral tablet 1 tablet = 20 mg, By Mouth, Daily at bedtime, # 90 tablet, 3 Refills, Soft Stop, 01/14/21 10:27:00 EDT, [facility]/pharmacy #0373, 187, cm, 09/19/20 9:39:00 EST, Height, 78.18, kg, 02/08/19 14:59:00 EDT, Dry Weight Start Date: 01/14/21 Status: Ordered finasteride 5 mg oral tablet 1 tablet = 5 mg, By Mouth, Daily, # 90 tablet, 3 Refills, Soft Stop, 01/14/21 10:27:00 EDT, [facility]/pharmacy #0373, 187, cm, 09/19/20 9:39:00 EST, Height, [...]
--- OUTSIDE RECORDS SUMMARY | 2023-05-06 06:30 | XMS_ITS | Continuity of Care Document ---
Author Name Unknown Organization [facility] lt Address [address] [place] [address]- Care Team Providers Care Bag Adjuster Name Role Phone Ina BRAMBILA, Joel Tripp Primary Care Physician [phone] [facility] Date[facility]s): 09/19/20 - 10/19/20 [facility] Adult [address] [place] [address]- Attending Physician: Walker Davey Admitting Physician: AdmtrWalker Referring Physician: AdmtrWalker Allergies, Adverse Reactions, Alerts Substance Reaction Severity Status NKA Active Immunizations Given and Recorded Vaccine Date Status Refusal Reason SARS-CoV-2 (COVID-19) mRNA-1273 vaccine 08/30/20 R ecorded [...] [facility]Result Comment[facility] 2Admin Note: [facility] at [facility] 3Result Comment: PH[facility]ACY 4Admin Note: [facility] 5Result Comment: [04/12/2018] [facility] 6Result Comment: [03/29/2017] [facility] [id number] 7Result Comment: [04/14/2015] [facility] 8Admin Note: given at [facility] 9Admin Note: [facility] 10Admin Note: [facility] 11Result Comment: [04/12/2018] [facility] 12Admin Note: WORK 11-11 Medications atorvastatin 20 mg oral tablet 1 tablet = 20 mg, By Mouth, Daily at bedtime, # 90 tablet, 1 Refills, Soft Stop, 07/31/20 14:28:00 EST, [facility]/pharmacy #[id number], 187, cm, 04/25/20 8:37:00 EDT, Height, 78.18, kg, 02/08/19 14:59:00 EDT, Dry Weight Start Date: 07/31/20 Status: Ordered finasteride 5 mg oral tablet 1 tablet = 5 mg, By Mouth, Daily, # 90 tablet, 3 Refills, Soft Stop, 04/25/20 9:04:00 EDT, [facility]/pharmacy #[id number], 187, cm, 04/25/20 [...]
--- OUTSIDE RECORDS SUMMARY | 2023-05-06 06:30 | XMS_ITS | Continuity of Care Document ---
Author Name Unknown Organization [facility] [place] [place] lt Address [address] [place] [address]- Care Team Providers Care Hull Line Crew Member Name Role Phone Ina BRAMBILA, Joel Tripp Primary Care Physician [phone] [facility]counter [facility] Date(s): 05/01/21 - 05/31/21 [facility] [place] Adult [address] [place] [address]- Attending Physician: Walker Davey Admitting Physician: AdmWalker moe Referring Physician: AdmtrBradly8 Allergies, Adverse Reactions, Alerts Substance Reaction Severity [...] en Parent Or Guardian Refuses 1Admin Note: [facility] 2Result Comment: [04/12/2018[facility] 3Result Comment: [03/29/2017] [facility] [id number] 4Result Comment: [04/14/2015] [facility] 5Admin Note: given at [facility] 6Admin Note: [facility] 7Result Comment: [facility] 8Result Comment: [facility] 9Admin Note: given at [facility] 10Result Comment: PHARMACY [facility]: [facility] 12Result Comment: [04/12/2018] [facility] 13Admin Note: WORK 11-11 Medications atorvastatin 20 mg oral tablet 1 tablet = 20 mg, By Mouth, Daily at bedtime, # 90 tablet, 3 Refills, Soft Stop, 01/14/21 10:27:00 EDT, [facility]/pharmacy #[id number], 187, cm, 09/19/20 9:39:00 EST, Height, 78.18, kg, 02/08/19 14:59:00 EDT, Dry Weight Start Date: 01/14/21 Status: Ordered finasteride 5 mg oral tablet 1 tablet = 5 mg, By Mouth, Daily, # 90 tablet, 3 Refills, Soft Stop, 01/14/21 10:27:00 EDT, [facility]/pharmacy #[id number], 187, cm, 09/19/20 9:39:00 EST, Height, 78.18, kg, 02/08/19 14:59:00 EDT, Dry Weight Start Date: 01/14/21 Status: Ordered sildenafil 100 mg oral tablet 1 tablet = 100 mg, By Mouth, Daily, 1 hour before sexual activity REFAXED TO [facility], # 10 tablet, 0Refills, Maintenance, 02/27/21 12:38:00 EDT, Tablet, [facility] # [id number], Partial fill upon patient [...]
--- OUTSIDE RECORDS SUMMARY | 2023-05-06 06:30 | XMS_ITS | Continuity of Care Document ---
Author Name Unknown Organization [facility] [place] Address [address] [place] [address]- Care Team Providers Care Journeyman Pipe Fitter Name Role Phone Patrick ALDANA, Irene Chaves Primary Care Physician [phone] [facility] Date(s): 05/24/22 - 06/23/22 [facility] Adult [address] [place] [address]- Allergies, Adverse Reactions, Alerts No Known Allergies [...] virus vaccine, inactivated 6 04/10/12 Gi karen [id number] bivalent booster vax 04/12/22 Recorded SARS-CoV-2 (COVID-19) [...] en Parent Or Guardian Refuses 1[facility] 2Result Comment: [04/12/2018] [facility] 3Result Comment: [03/29/2017] [facility] [id number] 4Result Comment: [04/14/2015] [facility] 5Admin Note: given at [facility] 6Admin Note: [facility] 7Result Comment: [facility] 8Result Comment: [facility] 9Admin Note: given at [facility] 10Result Comment: PHARMACY 11[facility] 12Result Comment: [04/12/2018] [facility] 13Admin Note: WORK 11-11 Medications atorvastatin 20 mg oral tablet 1 tablet, By Mouth, Daily at bedtime, PLEASE CALL OFFICE TO SCHEDULE AN APPT., # 90 tablet, 3 Refills, Maintenance, 04/13/22 11:07:00 EDT, [facility]/pharmacy #[id number], 185.5, cm, 05/01/21 8:26:00 EDT, Height Start Date: 04/13/22 Status: Ordered finasteride 5 mg oral tablet 1 tablet, By Mouth, Daily, PLEASE CALL OFFICE TO SCHEDULE AN APPT., # 90 tablet, 3 Refills, Maintenance, 06/17/22 12:32:00 EST, [id number], 185.5, cm, 05/14/22 7:12:00 EDT, Height Start [...] Care team information Care Team Personnel Name: Patrick ALDANA, Irene Chaves Position: [facility] PCO Associate Professional Member Role: PCP Address: Address: [address] [place] [address]- Care Team Related Persons Name: SHASHATEJINDERSYLVIA AMATO Address: home [address], [place] [address]
--- OUTSIDE RECORDS SUMMARY | 2023-05-06 06:30 | XMS_ITS | Continuity of Care Document ---
Author Name Unknown Organization [facility] [place] [place] Address [address] [place] [address]- Care Team Providers Care Grocery Sacker Name Role Phone Ina BRAMBILA, Joel Tripp Primary Care Physician [facility] Date(s): 07/02/21 - 08/01/21 [facility] Adult [address] [place] [address]- Allergies, Adverse Reactions, Alerts No Known Allergies [...] en Parent Or Guardian Refuses 1Admin Note: [facility] 2Result Comment: [04/12/2018] [facility] 3Result Comment: [03/29/2017] [facility] [id number] 4Result Comment: [04/14/2015] [facility] 5Admin Note: given at [facility] 6Admin Note: [facility] 7Result Comment: [facility] 8Result Comment: [facility] 9Admin Note: given at [facility] 10Result Comment: PHARMACY 11Admin Note: [facility] 12Result Comment: [04/12/2018] [facility] 13Admin Note: WORK 11-11 Medications atorvastatin 20 mg oral tablet 1 tablet = 20 mg, By Mouth, Daily at bedtime, # 90 tablet, 3 Refills, Soft Stop, 01/14/21 10:27:00 EDT, [facility]/pharmacy #[id number], 187, cm, 09/19/20 9:39:00 EST, Height, 78.18, kg, 02/08/19 14:59:00 EDT, Dry Weight Start Date: 01/14/21 Status: Ordered finasteride 5 mg oral tablet 1 tablet = 5 mg, By Mouth, Daily, # 90 tablet, 3 Refills, Soft Stop, 01/14/21 10:27:00 EDT, [facility]/pharmacy #0373, 187, cm, 09/19/20 9:39:00 EST, Height, [...]
--- OUTSIDE RECORDS SUMMARY | 2023-05-06 06:30 | XMS_ITS | Continuity of Care Document ---
Author Name Unknown Organization [facility] [place] Address [address] [place] [address]- Care Team Providers Care Heavy Equipment Rental Manager Name Role Phone Irene Nguyen NP Primary Care Physician [place] [facility] [place] 05/14/22 - 05/21/22 [facility] Adult [address] [place] [address]- Encounter Diagnosis Medicare annual wellness visit, subsequent(Discharge Diagnosis) - 05/14/22 BPH - Benign prostatic hypertrophy(Discharge Diagnosis) - 05/14/22 Hyperlipidemia(Discharge Diagnosis) - 05/14/22 Attending Physician: Not on Staff, Attending MD Referring Physician: Irene Nguyen NP Allergies, Adverse Reactions, Alerts No Known Allergies [...] virus vaccine, inactivated 6 04/10/12 Gi karen [id number] bivalent booster vax 04/12/22 Recorded SARS-CoV-2 (COVID-19) [...] 2Result Comment: [04/12/2018] [facility] 3Result Comment: [03/29/2017] [facility] [id number] 4Result Comment: [04/14/2015] [facility] 5Admin Note: given at [facility] 6Admin Note: [facility] 7Result Comment: [facility] 8Result Comment: [facility] 9Admin Note: given at [facility] 10Result Comment: PHARMACY 11Admin Note: [facility] 12Result Comment: [04/12/2018] [facility] 13Admin Note: WORK 11-11 Medications atorvastatin 20 mg oral tablet 1 tablet, By Mouth, Daily at bedtime, PLEASE CALL OFFICE TO SCHEDULE AN APPT., # 90 tablet, 3 Refills, Maintenance, 04/13/22 11:07:00 EDT, [id number], 185.5, cm, 05/01/21 8:26:00 EDT, Height Start Date: 04/13/22 Status: Ordered finasteride 5 mg oral tablet 1 tablet, By Mouth, Daily, PLEASE CALL OFFICE TO SCHEDULE AN APPT., # 90 tablet, 0 Refills, Maintenance, 04/08/22 15:09:00 EDT, [id number], 185.5, cm, 05/01/21 8:26:00 EDT, Height Start Date: 04/08/22 Status: Ordered Problem List Condition Confirmation Course Effective Dates Status H ealth Status Informant BPH - Benign prostatic hypertrophy Confirmed Active Mucous cyst of finger - left 3rd Confirmed Active Hyperlipidemia Confirmed Active Varicose veins Confirmed Active Diagnosis Diagnosis Type Effective Dates Health Status Clinical Service Informant BPH - Benign prostatic hypertrophy Discharge Diagnosis 05/14/22 Hyperlipidemia Discharge Diagnosis 05/14/22 Medicare annual wellness visit, subsequent Discharge Diagnosis 05/14/22 Vital Signs Most recent to oldest [Reference Range]: 1 Height 185.5 cm (05/14/22 7:12 AM) Weight 83.2 kg (05/14/22 7:12 AM) Oxygen Saturation [94-100 %] 100 % (05/14/22 7:12 AM) Pulse Rate [55-90 bpm] 71 bpm (05/14/22 7:12 AM) Body Mass Index [18.5-24.99 kg/m2] 24.18 kg/m2 (05/14/22 7:12 AM) Blood Pressure [90-138/55-84 mm Hg] 132/ 63mm Hg (05/14/22 7:12 AM) Blood pressure sites Arm, right (05/14/22 7:12 AM) Weight Obtained Via Standing scale (05/14/22 7:12 AM) Social History Social History Type Response Smoking Status Never smoker entered on: 03/26/16 Sex Male EKG study * Event Display: ECG 12-Lead Authored Date: Please click on pdf link to open report * Event Display: ECG 12-Lead Authored Date: Ventricular Rate: 62 BPM Atrial Rate: 62 BPM P-R Interval: 192 ms QRS Duration: 86 ms Q-T Interval: 412 ms QTC Calculation(Bazett): 418 ms P Converse: 64 degrees R Converse: 20 degrees T Converse: 47 degrees Sinus rhythm with Premature atrial complexes in a pattern of bigeminy Abnormal ECG When compared with ECG of 19-SEP-2020 10:11, Premature atrial complexes are now Present Confirmed by RONN GARCIA MD ([id number]) on 05/14/2022 8:39:18 PM [place]: RONN GARCIA MD Note * Tegan King: PERFORM, SIGN, VERIFY Event Display: Patient Education/Instruction Authored Date: [id number] [facility] *BMP So Subhash Alvarado Clinical Summary Name MARIANA DOLL Age 71 Years 1950 PCP Patrick ALDANA, Irene Chaves PCP Visit Date 05/14/2022 06:57:00 Additional Instructions: Scheduled Appointments?? Future Appointments ?No Future Appointments Scheduled Follow-Up Instructions ?? Diagnosis Cardiac arrhythmia, unspecified Medications: Please continue your medications until treatment is completed or stopped by your provider. Discuss any questions related to medications with your provider. Medications to Continue with No Changes These medications were not printed or sent to your pharmacy Atorvastatin (atorvastatin 20 mg oral tablet) 1 tab(s) Oral Daily at Bedtime. PLEASE CALL OFFICE TOSCHEDULE AN APPT.. Refills: 3. Next Dose: Finasteride (finasteride 5 mg oral tablet) 1 tab(s) Oral Daily. PLEASE CALL OFFICE TO SCHEDULE AN APPT.. Refills: 0. Next Dose: Allergy Info:?? NKA Medications Given This Visit Future Orders ?No future orders Vital Signs Height 185.5 cm Weight 83.2 kg BMI 24.18 kg/m2 Blood Pressure 132 mm Hg/63 mm Hg Temperature Pulse Rate 71 bpm Respiratory Rate 02 Sat Mode of Delivery 100 %/ You can now view a summary of your hospital visit from the comfort of your home through a free online portal called [facility]. [facility] is a website that allows you to securely view your medical information including discharge summary, medications and follow-up visits. ??You can alsosend a secure electronic message to your doctor???s office to request appointments, renew medications or just ask a question. You can enroll at [email or web address] or register during your next office visit. Disclaimer:?? The information provided is of a general nature and is intended to be used in conjunction with the recommendations and advice of your health care practitioner. ??Every effort has been made to ensure that the information provided is accurate and complete at the time it is provided to you however, as your needs change, or, as new ??information becomes available, different or additional instructions may be required. If you have questions, please consult with your primary care provider or pharmacist, as appropriate. ??This information is not intended to serve as substitution for assessment and evaluation by a qualified health care provider. If you do not have a primary care provider, you may find a [facility] provider by calling [facility] at [phone]. For information about the plan of care including goals and instructions for your diagnosis, please see the patient education orders section of this document. Patient Education Materials?? The content of this educational material or handout may have been modified, supplemented, or adapted from its original content and format to support your individualized medical care. Patient Care team information Care Team Personnel Name: Irene Nguyen NP Position: S PCO Associate Professional Member Role: PCP Address: Address: [address] [place] [address]- Care Team Related Persons Name: SYLVIA COOPER Address: home [address], [place] [address]
[2023-05-06 07:06] VITALS: BP 116/73; PULSE 67; RESP 18; TEMP 36.6; O2SAT 98
--- NOTE | 2023-05-06 07:22 | HO.ANESPROP2 ---
[facility] Past Medical History Medical History Hyperlipidemia BPH (benign prostatic hyperplasia) Hx of varicose veins Family History Family history of problems with anesthesia: No Surgical History Surgical History Hx of colonoscopy History of Problems with Anesthesia: No Social History Social History Patient Tobacco Use Status: Never used Tobacco Have you been hit, kicked, punched, or otherwise hurt by someone within the past year? If so, by whom?: No Are you DNR?: No Advance Directives: No Advance Directives Information Provided: Yes Recently lost weight without trying: No Eating poorly because of decreased appetite: No Nutrition Risks: No Nutritional Risk Poor oral hygiene: No Meds Allergies Allergy/AdvReac Type Severity Reaction Status Date / Time No Known Allergies Allergy Verified 05/05/23 10:44 Active Medications: Current Medications Sodium Biphosphate/Sodium Phosphate (Sodium Phosphate,Shoshone-Dibasic 133 Ml Enema) 133 ml NC ONCE PRN PRN Reason: Poor Colonoscopy Prep Results Home Medications Medication Instructions Recorded Confirmed Last Taken Type atorvastatin 20 mg tablet 20 mg PO BEDTIME 05/04/23 05/04/23 Unknown History finasteride 5 mg tablet 5 mg PO DAILY 05/04/23 05/04/23 Unknown History Exam Exam Date and Time: May 06, 2023721 Height,Weight and Vital Signs: Height 6 ft 3 in Weight 80.739 kg Last Vital Signs Temp 97.9 F 05/06/23 07:06 Pulse 67 05/06/23 07:06 Resp 18 05/06/23 07:06 BP 116/73 05/06/23 07:06 Pulse Ox 98 05/06/23 07:06 O2 Del Method Room Air 05/06/23 07:06 Airway Mallampati Class: II TM Dist: >3cm Loose/Missing/Broken Teeth: No Heart: rrr Lungs: clear Assessment and Plan Final Anesthetic Review Family History of Problems with Anesthesia: No History of Problems with Anesthesia: No NPO: Yes ASA Class: II Final Preanesthetic Review: No Changes in Pt Med Stat, Meds/Allgs Chart Reviewed, Consent Obtained/Reviewed and Anes Risks/Benef Reviewed Patient Risk: Intermediate Procedure Risk: Low Anesthetic Plan Anesthetic Plan: MAC: Disposition: Standard PACU
--- NOTE | 2023-05-06 08:29 | PM.OP ---
Brief Operative Note Date of Service: 05/06/23 Pre-op diagnosis: Screening Post-op diagnosis: other (Diverticulosis) Procedure: Colonoscopy to the cecum and TI Surgeon: Chico Zepeda MD Anesthesia: MAC Was an Meat Counter Clerk used for this Procedure?: No Estimated blood loss (mL): 0 Pathology: none sent Condition: stable Disposition: PACU
[2023-05-06 08:30] VITALS: BP 117/77; PULSE 59; RESP 16; TEMP 36.6; O2SAT 100
--- NOTE | 2023-05-06 08:44 | OP_ITS ---
DATE OF SERVICE: 05/06/2023 SURGEON: Chico Zepeda MD INDICATIONS: The patient presents for evaluation of colorectal cancer screening and personal history of tubular adenomas of the colon. Full consent obtained from him for this, including risks of bleeding and perforation. PREOPERATIVE DIAGNOSIS: POSTOPERATIVE DIAGNOSIS: PROCEDURE PERFORMED: Colonoscopy to cecum and terminal ileum. ESTIMATED BLOOD LOSS: COMPLICATIONS: ANESTHESIA: Monitored anesthesia care. ASSISTANTS: SPECIMENS: PREOPERATIVE DIAGNOSES: Colorectal cancer screening and personal history of tubular adenomas of the colon. POSTOPERATIVE DIAGNOSES: Colorectal cancer screening and personal history of tubular adenomas of the colon, diverticulosis and internal hemorrhoids. DESCRIPTION OF PROCEDURE: The patient was placed in the left lateral decubitus position. The digital rectal exam revealed no abnormalities. The Olympus video pediatric colonoscope was entered into the rectum and advanced easily to the cecum. Once in the cecum, I did identify normal-appearing cecal pouch with appendiceal orifice and a normal-appearing ileocecal valve. The terminal ileum was cannulated and appeared normal. Scope was withdrawn back in the colon. The entire cecum and ileocecal valve appeared normal. The scope was slowly withdrawn assessing all mucosal surfaces carefully. Preparation was excellent. I did not visualize any sign of polyps, colitis, nor angiodysplasia. There was a mild amount of sigmoid diverticulosis. In the rectum, scope was retroflexed visualizing internal hemorrhoids, but no other pathology. The rectal mucosa appeared normal. The scope was straightened and withdrawn from the patient. He tolerated the procedure well and was returned to the recovery area in stable condition. IMPRESSION: 1. Sigmoid diverticulosis. 2. Internal hemorrhoids. PLAN: I would recommend a repeat colonoscopy in 5 years for further screening and surveillance. He will otherwise see me on a p.r.n. basis. MD DIETER Otto/TOM / [id number]
[2023-05-06 08:45] VITALS: BP 124/65; PULSE 61; RESP 16; TEMP 36.6; O2SAT 100
== END 2023-05-06 09:02 | disposition home or self-care (01) ==
PROVIDERS: PCP Nurse Practitioner Family; Visit Provider Internal Medicine
PROC: 0DJD8ZZ Inspection of Lower Intestinal Tract, Via Natural or Artificial Opening Endoscopic (ICD-10-PCS; CPT 45378; principal; 2023-05-06 07:30)
DX: Z12.11 Encounter for screening for malignant neoplasm of colon (principal); Z86.010 Personal history of colon polyps; K57.30 Diverticulosis of large intestine without perforation or abscess without bleeding; K64.8 Other hemorrhoids; N40.0 Benign prostatic hyperplasia without lower urinary tract symptoms; E78.5 Hyperlipidemia, unspecified; Z79.899 Other long term (current) drug therapy
CPT/HCPCS: G0105